=== PATIENT | male | born 1970 | race Caucasian/White ===

== ENCOUNTER 2023-10-13 07:30 | Observation (INO) ==
[2023-10-13] MEDS: NOZIN NASAL SANITIZER TP ONE (07:06)
[2023-10-13] MEDS: LR 1,000 ML IV 0 ML IV ONE (07:07)
[2023-10-13] MEDS: NS 1,000 ML IV 1,000 ML ONE (07:10)
[2023-10-13 07:43] VITALS: BMI 20.7
[2023-10-13] MEDS ORDERED: REGLAN INJ 10 MG VIAL IVP PRN (10:07)
[2023-10-13] MEDS ORDERED: ZOFRAN INJ 4 MG VIAL IVP PRN (10:07)
[2023-10-13] MEDS ORDERED: BARHEMSYS INJ IVP PRN (10:07)
[2023-10-13] MEDS ORDERED: DILAUDID INJ IVP PRN (10:07)
[2023-10-13] MEDS ORDERED: BENADRYL INJ 50 MG VIAL IVP PRN (10:07)
[2023-10-13] MEDS: ANCEF VIAL 1 GRAM ONE (10:15)
[2023-10-13] MEDS: NS 100 ML IV 100 ML ONE (10:15)
[2023-10-13] MEDS: FENTANYL VIAL INJ 100 mcg ONE (10:26)
[2023-10-13] MEDS: VERSED ONE (10:26)
[2023-10-13] MEDS: DIPRIVAN VIAL 20 ML ONE (10:29)
[2023-10-13] MEDS: MARCAINE 0.25% INJ ONE (10:45)
[2023-10-13] MEDS: EPHEDRINE SULFATE INJ ONE (10:47)
[2023-10-13] MEDS: ROBINUL ONE (10:47)
[2023-10-13] MEDS ORDERED: TYLENOL 325 MG TAB PO PRN (13:01)
[2023-10-13] MEDS ORDERED: ZOFRAN INJ 4 MG VIAL ONE (13:42)
[2023-10-13] MEDS: ZOFRAN INJ 4 MG VIAL IVP PRN (13:45)
[2023-10-13] MEDS: COLACE CAP 100 MG PO SCH (21:31)
[2023-10-13] MEDS: NOZIN NASAL SANITIZER TP SCH (21:32)
[2023-10-13] MEDS ORDERED: NS 100 ML IV 100 ML ONE (21:35)
[2023-10-13] MEDS: TOBRAMYCIN SULFATE 100 MG in NS 100 ML IV 97.5 ML IV SCH (21:39)
[2023-10-13] MEDS: PERCOCET TAB 5/325 MG PO PRN (21:51)
[2023-10-14 00:52] VITALS: RESP 18
[2023-10-14 05:36] LABS: BLOOD UREA NITROGEN 12 mg/dL (7-18); CALCIUM 8.7 mg/dL (8.5-10.1); CARBON DIOXIDE 29.9 mmol/L (21-32); CHLORIDE 101 mmol/L (98-107); COR NA(FOR HYPERGLY) 142 mmol/L (136-145); GLUCOSE 189 mg/dL (65-99); POTASSIUM 3.9 mmol/L (3.5-5.1); SODIUM 140 mmol/L (136-145); eGFR NON BLACK RACES > 60 (>60)
--- NOTE | 2023-10-14 06:46 | NOTE.SOAP ---
Soap Note Note for Day of Date of Exam: 10/14/23 Subjective Data Subjective Data: Patient is a 52 year old male with an equinus contracture that underwent an achilles lengthening with application of dynamic external fixator yesterday. He is fully insensate to the extremity and has not experienced any pain. He denies any constitutional symptoms; he is ready to go home. Objective Data Objective Data: Dressings c/d/i without strikethrough to the RLE no changes with neurovascular status. Able to move toes. Assessment Assessment: 52 year old male s/p achilles lengthening, posterior capsule release with application of multiplane dynamic external fixator (DOS;10/13/23) Plan Plan: Patient is doign well this am; in good spirits and is ready to go home. I explained he can be weight bearing at 50% with assistive device. He understands. He did have to take two pain pills throughout the night. Discharging him with pain medication, lovenox and zofran. He is to follow up with dr singleton in his office at scheduled appointment or sooner if any problems arise.
[2023-10-14 08:32] VITALS: TEMP 99.7
[2023-10-14] MEDS: LOVENOX INJ 40 MG SYR SC SCH (09:29)
[2023-10-14 14:46] VITALS: BP 169/88; PULSE 92; O2SAT 96
[2023-10-14] MEDS ORDERED: PHARMACY COMMENT IV SCH (15:30)
== END 2023-10-14 12:40 | disposition home or self-care (01) ==
LOC: MED/SURG → EDUNIT# 13:30
PROVIDERS: ADMIT Obstetrics & Gynecology Obstetrics; ATTEND Obstetrics & Gynecology Obstetrics
PROC: APEXFIX (2023-10-13 10:45)